=== PATIENT | male | born 1955 | race African-American/Black ===

== ENCOUNTER 2018-06-15 09:06 | Emergency (ER) | payer MEDICARE, MEDICAID ==
[~2018-06-15] VITALS: Ht 170.2 cm; Wt 103.0 kg
[2018-06-15] MEDS ORDERED: TETRACAINE 0.5% OPHTH DROPS 4ML OP ONE (10:15)
[2018-06-15] MEDS ORDERED: FLUORESCEIN SODIUM 1MG/STRIP OP ONE (10:15)
[2018-06-15] MEDS ORDERED: DIPHENHYDRAMINE 50MG/ML VIAL IV ONE (10:30)
[2018-06-15] MEDS ORDERED: PROCHLORPERAZINE 10MG/2ML VIAL IV ONE (10:30)
[2018-06-15 11:04] LABS: BASOPHILS % 0.5 % (0.0-2.0); HEMATOCRIT. 39.1 % (42.0-52.0); HEMOGLOBIN. 13.1 g/dL (14.0-18.0); LYMPHOCYTES % 14.2 % (20.0-50.0); MEAN CORPUSCULAR HEMOGLOBIN 31.7 pg (28.0-32.0); MEAN CORPUSCULAR VOLUME 94.9 fL (80.0-94.0); MEAN PLATELET VOLUME 8.3 fl (7.4-10.4); MONOCYTES % 7.6 % (2.0-8.0); NEUTROPHILS % 74.7 % (40.0-76.0); PLATELET 243 x1000/uL (130-400); RED BLOOD CELL COUNT 4.12 mill/uL (4.7-6.1); RED CELL DISTRIBUTION WIDTH 13.4 % (11.6-14.6)
[2018-06-15 11:11] LABS: CHLORIDE 106 mEq/L (98-107)
[2018-06-15 14:05] VITALS: BP 159/83
== END 2018-06-15 14:22 | disposition home or self-care (01) ==
LOC: ER 09:06
DX: G43.909 Migraine, unspecified, not intractable, without status migrainosus (principal); J32.9 Chronic sinusitis, unspecified; I10 Essential (primary) hypertension; R20.2 Paresthesia of skin; D64.9 Anemia, unspecified; E11.9 Type 2 diabetes mellitus without complications; Z79.899 Other long term (current) drug therapy; Z87.891 Personal history of nicotine dependence
CPT/HCPCS: 36415; 70450; 80053; 85025; 85651; 96374; 96375; 99284; J0780; J1200

== ENCOUNTER 2019-05-22 09:16 | Emergency (ER) | payer MEDICARE, MEDICAID ==
[~2019-05-22] VITALS: Ht 167.6 cm; Wt 100.0 kg
[2019-05-22] MEDS ORDERED: ACETAMINOPHEN WITH CODEINE 300/30MG TABLET PO ONE (10:00)
[2019-05-22] MEDS ORDERED: LIDOCAINE HCL/PF 1% 10 MG/ML 5ML VIAL IJ ONE (10:00)
[2019-05-22] MEDS ORDERED: BACITRACIN ZINC OINT UDPKT TOP ONE (10:00)
[2019-05-22 10:09] VITALS: BP 134/63
== END 2019-05-22 10:48 | disposition home or self-care (01) ==
LOC: ER 09:16
DX: L03.012 Cellulitis of left finger (principal)
CPT/HCPCS: 10060; 99283; J3490

== ENCOUNTER 2019-07-17 12:53 | Emergency (ER) | payer MEDICARE, MEDICAID ==
[~2019-07-17] VITALS: Ht 167.6 cm; Wt 105.0 kg
[2019-07-17 13:52] VITALS: BP 143/68
== END 2019-07-17 16:24 | disposition left against medical advice (07) ==
LOC: ER 12:53
DX: Z53.21 Procedure and treatment not carried out due to patient leaving prior to being seen by health care provider (principal)